=== PATIENT | male | born 1965 | race Caucasian/White ===

== ENCOUNTER 2017-07-26 06:41 | Emergency (ER) | payer OTHER ==
--- NOTE | 2017-07-26 08:20 | ED ---
Esteban Diane Angela, scribed for Juan Snowden MD on 07/26/17 at 0726 . Complex/Multi-Sys Presentation - HPI Summary HPI Summary: This pt is a 51 y/o male presenting to [facility] c/o not feeling well for the past 9 days. Pt reports he began to feel chills 9 days ago and since then he has felt "feverish." He additionallly notes rhinorrhea with green discharge, cough, chest congestion, sinus pressure, decreased appetite, intermittent headaches. He describes an intermittent slight frontal headache. He notes 1 episode of nausea and vomiting last week, none since then. Pt states that when he swallows his ears "click." Denies sore throat, abd pain. He has taken Tylenol last night with mild relief. Denies hx of asthma, recurrent ear infection. Denies tobacco use. - History Of Current Complaint Chief Complaint: EDWeakness Hx Obtained From: Patient Onset/Duration: Lasting Days, Still Present Timing: Days Severity Currently: Mild Severity Initially: Moderate Aggravating Factor(s): nothing Alleviating Factor(s): nothing Associated Signs And Symptoms: Positive: Headache, Cough, Nausea, Vomiting - 1 episode last week, Decreased Oral Intake, Fever - feverish, Other - POS: rhinorrhea, decreased appetite, body aches, chills, chest congestion. NEG: sore throat, abd pain.. Negative: Abdominal Pain - Allergies/Home Medications Allergies/Adverse Reactions: Allergies Allergy/AdvReac Type Severity Reaction Status Date / Time acetaminophen [From Vicodin] Allergy Mild GI Upset Verified 07/26/17 07:09 hydrocodone [From Vicodin] Allergy Mild GI Upset Verified 07/26/17 07:09 PMH/Surg Hx/FS Hx/Imm Hx Endocrine/Hematology History: Denies: Hx Diabetes Cardiovascular History: Reports: Hx Hypercholesterolemia, Hx Hypertension Infectious Disease History: No Infectious Disease History: Denies: Traveled Outside the [place] in Last 30 Days - Family History Known Family History: Negative: Hypertension - Social History Alcohol Use: Daily Alcohol Amount: a bottle honorio fabian daily, last drink 1 wk ago. Substance Use Type: Reports: None Smoking Status (MU): Never Smoked Tobacco Review of Systems Constitutional: Other - decreased PO intake Positive: Fever - feverish, Chills ENT: Other - chest congestion, sinus pressure Positive: Nasal Discharge. Negative: Sore Throat Positive: Cough Positive: Vomiting - 1 episode, Nausea - 1 episode. Negative: Abdominal Pain Positive: no symptoms reported, see HPI Positive: Headache - intermittent All Other Systems Reviewed And Are Negative: Yes Physical Exam - Summary Physical Exam Summary: General: mildly ill appearing, no pain distress Skin: warm, color reflects adequate perfusion, dry Head: normal Eyes: EOMI, MARGA[place] ENT: left serous otitis media. Clear rhinorrhea. Neck: supple, nontender. Positive anterior lymphadenopathy. Respiratory: CTA, breath sounds present Cardiovascular: RRR Abdomen: soft, nontender Bowel: present Musculoskeletal: normal, strength/ROM intact Neurological: normal, sensory/motor intact, A&O x3 Psychological: affect/mood appropriate Triage Information Reviewed: Yes Vital Signs On Initial Exam: Initial Vitals Temp Pulse Resp BP Pulse Ox 98.0 F 90 18 175/102 96 07/26/17 06:42 07/26/17 06:42 07/26/17 06:42 07/26/17 06:42 07/26/17 06:42 Vital Signs Reviewed: Yes Diagnostics - Vital Signs Vital Signs Temp Pulse Resp BP Pulse Ox 07/26/17 07:06 97.1 F 85 18 153/110 95 07/26/17 06:42 98.0 F 90 18 175/102 96 - Laboratory Lab Results: Lab Results 07/26/17 Range/Units 07:32 Influenza A (Rapid) Negative (Negative) Influenza B (Rapid) Negative (Negative) Lab Statement: Any lab studies that have been ordered have been reviewed, and results considered in the medical decision making process. Re-Evaluation - Re-Evaluation First Eval Re-Evaluation Time: 08:15 Comment: I reviewed the test results and the discharge plan with the pt. He will be discharged home. Complex Multi-Symp Course/Dx Course Of Treatment: BP noted and advised to follow up with PCP. Influenza A and B are both negative. Medications reviewed. Allergies noted. - Diagnoses Provider Diagnoses: Sinusitis Discharge - Discharge Plan Condition: Stable Disposition: HOME Prescriptions: Amoxicillin/Clavulanate TAB* [Augmentin TAB 875*] 875 mg PO BID #20 tab Patient Education Materials: Sinusitis (ED) Forms: *Work Release Referrals: Ariadna Aaron MD [Primary Care Provider] - Additional Instructions: FOLLOW UP WITH YOUR DOCTOR. RETURN TO THE EMERGENCY DEPARTMENT FOR ANY WORSENING OF YOUR CONDITION OR QUESTIONS OR CONCERNS. YOUR BLOOD PRESSURE WAS ELEVATED TODAY; FOLLOW UP WITH YOUR PRIMARY CARE DOCTOR WITHIN ONE WEEK. The documentation as recorded by the Esteban santa Angela accurately reflects the service I personally performed and the decisions made by me, Juan Snowden MD.
[2017-07-26 08:28] VITALS: BP 161/107
== END 2017-07-26 08:27 | disposition home or self-care (01) ==
LOC: ED 06:41
DX: J32.9 Chronic sinusitis, unspecified (principal); R51 Headache; R05 Cough; R11.2 Nausea with vomiting, unspecified; Z86.79 Personal history of other diseases of the circulatory system
CPT/HCPCS: 87502; 99282